=== PATIENT | female | born 1950 | race Caucasian/White ===

== ENCOUNTER 2016-12-21 20:59 | Emergency (ER) | payer MEDICARE ==
[2016-12-21] MEDS ORDERED: OXYMETAZOLINE HCL 0.05% 30 SPRAYS/BOT NS ONE (21:48)
[2016-12-21] MEDS ORDERED: ASPIRIN CHEWTAB 81 MG TABLET ONE (21:48)
[2016-12-21 21:55] LABS: ABSOLUTE NEUTROPHIL COUNT 10.5 K/mm3 (1.8-7.7); BASO # 0.1 K/mm3 (0.0-0.2); BASO % 0.3 % (0.2-1.0); EOS # 0.2 (0.0-0.5); EOS % 1.4 % (0.9-2.9); HEMATOCRIT 39.5 % (37.0-47.0); HEMOGLOBIN 12.7 gm/l (12.0-16.0); IMM NEUT # 0.1 K/mm3 (0-0.2); IMM NEUT% 0.5 % (0-1); LYMPH % 19.9 % (15-45); MEAN CELL VOLUME 93.2 fl (81.0-99.0); MEAN CORPUSCULAR HGB CONC 32.2 g/dl (33.0-37.0); MONO # 1.1 (0.0-0.8); MONO % 7.5 % (4-12); NEUT % 70.4 % (43-75); PLATELET COUNT 254 K/mm3 (130-400); RED CELL DISTRIBUTION WIDTH 13.2 % (11.5-14.5)
[2016-12-21 22:18] LABS: ALB/GLOB RATIO 1.1 (>1.0); ALBUMIN 3.7 gm/dL (3.5-5.7); CALCIUM 9.3 mg/dL (8.6-10.3)
[2016-12-21] MEDS ORDERED: DILTIAZEM HCL 5 MG/ML 5ML VIAL IV ONE ×2 (22:59→23:42)
[2016-12-22] MEDS: IOPAMIDOL 370 (76%) 100 ML VIAL IV ONE (00:50)
--- NOTE | 2016-12-27 14:21 | RAD ---
History: Confidence dyspnea for 3 weeks. Comparison: 11/02/2015. Technique: 2 views Findings: The soft tissue and bony structures appear to be appropriate. The heart size is stable. Mild interstitial opacities are suggested within both upper lobes similar to the appearance on previous examination. No effusion or pneumothorax is visualized. The hilar and mediastinal structures are intact. Impression: 1. Subtle interstitial opacities within both upper lung zones which may reflect atypical infection or early fibrotic change. The appearance is similar to that seen on prior exam of 11/02/2015.
--- NOTE | 2017-01-02 15:28 | CT ---
CTA CHEST WWO CONTRAST PATIENT NAME: Valentina Wei History: New atrial fibrillation with chest pain and cough. Comparison: Chest x-ray dated 12/21/2016. Procedure: 1 mm axial images were obtained through the chest following the administration of 80cc's of Isovue-370 intravenous contrast. Stacked reconstructed 3 mm images were then photographed in the axial, coronal and sagittal planes. 3-D reconstructed MIP images were also performed on the scanner workstation. Findings: There is a normal appearance of the visualized thyroid gland. No significant mediastinal adenopathy is observed. Bilateral hilar adenopathy is identified. The heart size is appropriate. The aortic caliber is within expected. No pericardial abnormalities are seen. The pulmonary arterial tree is adequately opacified. No definite filling defects are identified within the main, primary or secondary pulmonary arterial branches to suggest the presence of a pulmonary embolus. Lung parenchymal windows demonstrate a normal appearance of the central airways. Patchy airspace consolidation is suggested within the left upper lobe, the right upper lobe and the right middle lobe. No effusion is seen. Scans through the upper abdomen appear to be unremarkable. Multilevel thoracic degenerative changes are incidentally seen. Impression: 1. No current evidence of a pulmonary embolus visualized. 2. Patchy areas of airspace consolidation within the right upper lobe, right middle lobe, and left upper lobe which may be infectious in etiology. 3. Bilateral hilar adenopathy. 4. Multilevel thoracic degenerative changes. The findings were called to the emergency room at 0113 hours,12/22/2016, by [facility]. The final interpretation of this examination was delayed due to technical factors. Ever Villanueva M.D.
== END 2016-12-22 02:00 | disposition home or self-care (01) ==
LOC: ED 20:59
DX: J18.9 Pneumonia, unspecified organism (principal); I48.91 Unspecified atrial fibrillation; J45.909 Unspecified asthma, uncomplicated; F17.210 Nicotine dependence, cigarettes, uncomplicated
CPT/HCPCS: 83880; 85379; 85025; 82550; 80053; 84484; 71020; 71275; 96376; 99285 ×2; 92960 ×2; 96374; A9270 ×2; Q9967